=== PATIENT | female | born 1935 | race Caucasian/White ===

== ENCOUNTER 2019-03-11 09:44 | Outpatient (CLI) | payer MEDICARE, OTHER ==
--- NOTE | 2019-03-11 10:57 | RAD ---
CHEST TWO VIEWS: HISTORY: Pulmonary edema. COMPARISON: Chest radiograph from 2015. FINDINGS: There is a similar appearance of the right upper lobe nodule. No pneumothorax. No effusion. The ca rdiac silhouette and mediastinal contours are similar. No acute osseous abnormality. Chronic appearing superior endplate deformity, lower thoracic spine, l ikely T10. Mild vascular calcifications of the aorta. IMPRESSION: No evidence for pulmonary edema. POS: CET
== END 2019-03-11 09:45 | disposition home or self-care (01) ==
LOC: RAD-FRANK 09:44
PROVIDERS: ATTEND Nurse Practitioner Family
DX: R60.9 Edema, unspecified (principal)
CPT/HCPCS: 71046

== ENCOUNTER 2019-06-18 09:24 | Outpatient (CLI) | payer MEDICARE ==
--- NOTE | 2019-06-18 11:15 | RAD ---
CERVICAL SPINE 3 VIEWS: Date: 06/18/19 HISTORY: Cervical pain. FINDINGS: Bone demineralization. Multilevel disc osteophytosis and facet arthrosis. These changes are noted par ticularly at C3-C4, C4-C5, and C5-C6. No prevertebral soft tissue swelling. No significant malalignme nt. IMPRESSION: Bone demineralization. Cervical spondylosis. POS: OFF
== END 2019-06-18 09:25 | disposition home or self-care (01) ==
LOC: RAD-FRANK 09:24
PROVIDERS: ATTEND Nurse Practitioner Family
DX: S16.1XXA Strain of muscle, fascia and tendon at neck level, initial encounter (principal); M47.812 Spondylosis without myelopathy or radiculopathy, cervical region; M81.0 Age-related osteoporosis without current pathological fracture
CPT/HCPCS: 72040

== ENCOUNTER 2021-06-13 16:18 | Outpatient (CLI) | payer MEDICARE | END 2021-06-13 16:19 | disposition home or self-care (01) | LOC: RAD-FRANK 16:18 | PROVIDERS: ATTEND Nurse Practitioner Family | DX: R06.02 Shortness of breath (principal) | CPT/HCPCS: 71046 ==

== ENCOUNTER 2022-01-31 13:19 | Outpatient (CLI) | payer MEDICARE ==
[2022-01-31 14:52] LABS: Hemoglobin 12.9 g/dL (12.0-15.5); Mean Corpuscular HGB CONC 32.9 g/dL (32.0-36.0); Mean Corpuscular Hemoglobin 29.5 pg (27.0-33.0); Mean Corpuscular Volume 89.7 fl (81.6-98.3); Mean Platelet Volume 10.6 fl (7.4-10.4); Platelet Count 205 10x3/uL (150-450); RBC Distribution Width 13.1 % (11.5-14.5); Red Blood Cell (RBC) Count 4.37 10x6/uL (3.90-5.03); White Blood Cell (WBC) Count 5.8 10x3/uL (3.5-10.5)
[2022-01-31 15:21] LABS: INR-International Normal Ratio 1.1; Prothrombin Time 12.3 sec (9.5-12.1)
[2022-01-31 15:29] LABS: Anion Gap 12 mmol/L (10-20); BUN (Urea Nitrogen) 14 mg/dL (9.8-20.1); Calc. Creatinine Clearance 0 mL/min (70-130); Calcium 9.8 mg/dL (7.8-10.44); Carbon Dioxide 29 mmol/L (23-31); Chloride 103 mmol/L (98-107); Glucose 105 mg/dL (83-110); Potassium 4.4 mmol/L (3.5-5.1); Sodium 140 mmol/L (136-145)
[2022-02-01 00:24] LABS: SARS-CoV-2 PCR by NAA Not Detected (NotDetected)
== END 2022-01-31 13:20 | disposition home or self-care (01) ==
LOC: LABBT 13:19
PROVIDERS: ATTEND Internal Medicine Cardiovascular Disease
DX: Z01.812 Encounter for preprocedural laboratory examination (principal); I48.0 Paroxysmal atrial fibrillation; I48.3 Typical atrial flutter; Z20.822 Contact with and (suspected) exposure to COVID-19
CPT/HCPCS: 80048; 85027; 85610; U0003; U0005

== ENCOUNTER 2022-02-03 08:39 | Day surgery (SDC) | payer MEDICARE ==
[2022-01-30 14:10] VITALS: BMI 27.5
[2022-02-03] MEDS ORDERED: Heparin 25,000 units/D5W 0 ML ONE (09:46)
[2022-02-03] MEDS ORDERED: Heparin 10,000 UNITS/ 10 ML VIAL ONE (09:46)
[2022-02-03] MEDS ORDERED: Isoproterenol 0.2 MG/1 ML AMP ONE (09:46)
[2022-02-03] MEDS ORDERED: Propofol 500 MG/50 ML VIAL ONE (11:33)
[2022-02-03] MEDS ORDERED: Fentanyl 100 MCG/2 ML VIAL ONE (11:33)
[2022-02-03] MEDS ORDERED: PROPOFOL 200 MG/20 ML VIAL ONE (11:55)
[2022-02-03] MEDS ORDERED: Lidocaine 1% PF 5 ML VIAL ONE (11:55)
== END 2022-02-03 15:20 | disposition home or self-care (01) ==
LOC: SDC 08:39
PROVIDERS: ATTEND Internal Medicine Cardiovascular Disease
PROC: 4A023FZ Measurement of Cardiac Rhythm, Percutaneous Approach (ICD-10-PCS; principal; 2022-02-03)
PROC: 4A0234Z Measurement of Cardiac Electrical Activity, Percutaneous Approach (ICD-10-PCS; 2022-02-03)
PROC: 02583ZZ Destruction of Conduction Mechanism, Percutaneous Approach (ICD-10-PCS; 2022-02-03)
PROC: 02K83ZZ Map Conduction Mechanism, Percutaneous Approach (ICD-10-PCS; 2022-02-03)
DX: I48.3 Typical atrial flutter (principal); I48.0 Paroxysmal atrial fibrillation; I10 Essential (primary) hypertension; E78.5 Hyperlipidemia, unspecified; E03.9 Hypothyroidism, unspecified; Z79.01 Long term (current) use of anticoagulants; Z79.890 Hormone replacement therapy; Z79.899 Other long term (current) drug therapy; Z88.5 Allergy status to narcotic agent; Z88.8 Allergy status to other drugs, medicaments and biological substances
CPT/HCPCS: 93005; 93312; 93613; 93653; C1731; C1894; C2630; J1644; J2704; J3010